=== PATIENT | female | born 1995 | race Two or more races ===

== ENCOUNTER 2017-09-04 07:34 | Emergency (ER) | payer OTHER ==
[2017-09-04 07:55] VITALS: BP 119/71; PULSE 68; TEMP 98.6; BMI 32.4
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
[2017-09-04] MEDS ORDERED: diazePAM 5 MG TABLET PO ONE (10:02)
[2017-09-04] MEDS ORDERED: KETOROLAC TROMETHAMINE 60 MG/2 ML VIAL IM ONE (10:02)
[2017-09-04] MEDS ORDERED: KETOROLAC TROMETHAMINE 60 MG/2 ML VIAL ONE (10:07)
[2017-09-04] MEDS ORDERED: diazePAM 2 MG TABLET ONE (10:07)
== END 2017-09-04 10:33 | disposition home or self-care (01) ==
LOC: JER 07:34 → JERFT 07:34
PROC: 3E0233Z Introduction of Anti-inflammatory into Muscle, Percutaneous Approach (ICD-10-PCS; principal; 2017-09-04)
DX: S13.4XXA Sprain of ligaments of cervical spine, initial encounter (principal); G44.319 Acute post-traumatic headache, not intractable; V49.59XA Passenger injured in collision with other motor vehicles in traffic accident, initial encounter; Y92.488 Other paved roadways as the place of occurrence of the external cause; Y93.89 Activity, other specified; Y99.8 Other external cause status
CPT/HCPCS: 70450-TC; 72125-TC; 84703; 99281-25

== ENCOUNTER 2018-11-24 06:44 | Emergency (ER) | payer OTHER ==
[2018-11-24 07:03] VITALS: BP 123/89; PULSE 80; TEMP 98.7; BMI 33.3
[2018-11-24] MEDS ORDERED: KETOROLAC TROMETHAMINE 60 MG/2 ML VIAL IM ONE ×2 (07:10→07:15)
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
[2018-11-24] MEDS ORDERED: KETOROLAC TROMETHAMINE 60 MG/2 ML VIAL ONE (07:51)
== END 2018-11-24 08:16 | disposition home or self-care (01) ==
LOC: JER 06:44
PROC: 3E0233Z Introduction of Anti-inflammatory into Muscle, Percutaneous Approach (ICD-10-PCS; principal; 2018-11-24)
DX: M54.2 Cervicalgia (principal); M54.89 Other dorsalgia; V49.49XA Driver injured in collision with other motor vehicles in traffic accident, initial encounter; Y92.414 Local residential or business street as the place of occurrence of the external cause; Y93.89 Activity, other specified; Y99.8 Other external cause status; Z86.32 Personal history of gestational diabetes
CPT/HCPCS: 84703; 99281-25

== ENCOUNTER 2019-08-02 16:54 | Emergency (ER) | payer OTHER ==
[2019-08-02 17:47] VITALS: BMI 34.0
[2019-08-02] MEDS ORDERED: ACETAMINOPHEN 325 MG TABLET (FP) PO ONE (18:06)
[2019-08-02] MEDS ORDERED: ACETAMINOPHEN 325 MG TABLET (FP) ONE (18:11)
--- NOTE | 2019-08-02 18:11 | PDOC ---
History of Present Illness - General History Source: Patient Exam Limitations: No Limitations <SusanKatie - Last Filed: 08/02/19 20:04> <Stephanie Gramajo - Last Filed: 08/03/19 16:15> - General Chief Complaint: Vaginal Bleeding Stated Complaint: /CRAMPS/BLEEDING Time Seen by Provider: 08/02/19 18:00 Past History - Past Medical History Asthma: No Cancer: No Cardiac Disorders: No COPD: No Diabetes: Yes (gestational diabetes- diet controlled) HTN: No Seizures: No Thyroid Disease: No - Reproductive History Cervical CA: No Dysfunctional Uterine Bleeding: No Ectopic : No Endometrial CA: No Polycystic Ovaries: No Tubal Ligation: No - Immunization History Immunization Up to Date: Yes - Psycho Social/Smoking Cessation Hx Smoking Status: Yes Smoking History: Never smoked Have you smoked in the past 12 months: Yes Number of Cigarettes Smoked Daily: 4 Information on smoking cessation initiated: No Hx Alcohol Use: No Drug/Substance Use Hx: No Substance Use Type: None Hx Substance Use Treatment: No <Katie Davis - Last Filed: 08/02/19 20:04> <Stephanie Gramajo - Last Filed: 08/03/19 16:15> - Past Medical History Allergies/Adverse Reactions: Allergies Allergy/AdvReac Type Severity Reaction Status Date / Time No Known Allergies Allergy Verified 11/24/18 06:59 Home Medications: Ambulatory Orders NK [No Known Home Medication] 08/02/19 *Physical Exam - Vital Signs Last Vital Signs Temp Pulse Resp BP Pulse Ox 98.9 F 86 18 120/77 99 08/02/19 17:40 08/02/19 17:40 08/02/19 17:40 08/02/19 17:40 08/02/19 17:40 - Physical Exam General Appearance: No: Apparent Distress Respiratory/Chest: positive: Lungs Clear, Normal Breath Sounds. negative: Respiratory Distress Cardiovascular: positive: Regular Rhythm, Regular Rate, S1, S2. negative: Murmur Female Pelvic Exam: positive: adnexal tenderness (mild along L side) Gastrointestinal/Abdominal: positive: Normal Bowel Sounds, Soft. negative: Tender, Distended, Guarding, Rebound Integumentary: positive: Normal Color Neurologic: positive: Alert <Katie Davis - Last Filed: 08/02/19 20:04> - Vital Signs Last Vital Signs Temp Pulse Resp BP Pulse Ox 98.6 F 83 17 115/72 97 08/02/19 19:25 08/02/19 19:25 08/02/19 19:25 08/02/19 19:25 08/02/19 19:25 <Stephanie Gramajo - Last Filed: 08/03/19 16:15> ED Treatment Course - LABORATORY CBC & Chemistry Diagram: 08/02/19 18:30 08/02/19 18:30 - RADIOLOGY Radiology Studies Ordered: Category Date Time Status <14WKS US [US] Stat Ultrasound 08/02/19 18:06 Ordered <Katie Davis - Last Filed: 08/02/19 20:04> - LABORATORY CBC & Chemistry Diagram: 08/02/19 18:30 08/02/19 18:30 - ADDITIONAL ORDERS Additional order review: 08/02/19 18:30 RBC 4.38 MCV 87.5 MCHC 33.9 RDW 13.1 MPV 7.7 Neutrophils % 54.3 D Lymphocytes % 38.7 D Monocytes % 3.6 L Eosinophils % 2.9 D Basophils % 0.5 - Medications Given in the ED: ED Medications Discontinued Medications Generic Name Dose Route Start Last Admin Trade Name Freq PRN Reason Stop Dose Admin Acetaminophen 975 mg 08/02/19 18:06 08/02/19 18:33 Tylenol - PO 08/02/19 18:07 975 mg ONCE ONE Administration <Stephanie Gramajo - Last Filed: 08/03/19 16:15> Medical Decision Making - Medical Decision Making 24 y/o F with no sig pmh, LNMP 06/21, presents with pelvic cramping and intermittent light vaginal bleeding from today. Mentions also had slight brownish discharge 5 days ago. Found out she was 2 days ago; has not had a checkup yet. Denies fever, sob, cp, n/v, urinary sxs. Hx of x1 R/O ectopic ; possible threatened Plan: Labs, pelvic US, tylenol 08/02/19 18:09 TVUS shows IUP at 5 weeks 6 days, FHR noted at 125 bpm Rh positive stable for dc 08/02/19 20:04 <Katie Davis - Last Filed: 08/02/19 20:04> - Medical Decision Making The patient was seen and evaluated in conjunction with midlevel provider under my direct supervision, ancillary studies were reviewed. I agree with the plan as outlined with WOODROW Davis.. HPI, workup/dispo as outlined. VS reviewed, wnl. IUP at 5w 6d seen, FHR noted, no rhogam labs and lytes unremarkable anticipate discharge, pcp followup, return precautions 08/03/19 16:15 <Stephanie Gramajo - Last Filed: 08/03/19 16:15> Discharge - Discharge Information Problems reviewed: Yes - Admission No - Additional Discharge Information Prescription Drug Monitoring Program (I-STOP) results: I-STOP not reviewed <Katie Davis - Last Filed: 08/02/19 20:04> <Stephanie Gramajo - Last Filed: 08/03/19 16:15> - Discharge Information Clinical Impression/Diagnosis: Threatened Condition: Stable Disposition: HOME - Patient Discharge Instructions Patient Printed Discharge Instructions: DI for Threatened Additional Instructions: Thank you for choosing [facility]. It was a pleasure taking care of you. Recommend pelvic rest (including no intercourse) Follow-up with your SCIENTIFIC DIVER Return to the Emergency Department if your symptoms worsen or persist or have other concerning symptoms.
[2019-08-02 18:46] LABS: BASO % 0.5 % (0-2.0); EOS % 2.9 % (0-4.5); HEMATOCRIT 38.4 % (32.4-45.2); LYMPH % 38.7 % (8-40); MCH 29.7 pg (25.7-33.7); MCHC 33.9 g/dl (32.0-36.0); MEAN CELL VOLUME 87.5 fl (80-96); MEAN PLT VOLUME 7.7 fl (7.5-11.1); MONO % 3.6 % (3.8-10.2); NEUT % 54.3 % (42.8-82.8); PLATELET COUNT 282 K/MM3 (134-434); RBC 4.38 M/mm3 (3.60-5.2); RDW 13.1 % (11.6-15.6); WHITE BLOOD COUNT 6.4 K/mm3 (4.0-10.0)
[2019-08-02 18:47] LABS: PH,URINE 6.5 (5.0-8.0); URINE APPEARANCE CLEAR; URINE BILIRUBIN NEGATIVE (NEGATIVE); URINE COLOR YELLOW; URINE GLUCOSE (UA) NEGATIVE (NEGATIVE); URINE KETONE NEGATIVE (NEGATIVE); URINE LEUK ESTERASE NEGATIVE (NEGATIVE); URINE NITRITE NEGATIVE (NEGATIVE); URINE PROTEIN NEGATIVE (NEGATIVE); URINE UROBILINOGEN 0.2 mg/dL (0.2-1.0)
[2019-08-02 19:20] LABS: ALBUMIN 3.6 g/dl (3.4-5.0); BILIRUBIN,TOTAL 0.2 mg/dL (0.2-1); CALCIUM 8.4 mg/dL (8.5-10.1); CREATININE 0.8 mg/dL (0.55-1.3); POTASSIUM 3.9 mmol/L (3.5-5.1); TOT PROT 6.7 g/dl (6.4-8.2)
[2019-08-02 19:21] LABS: BLOOD UREA NITROGEN 14.8 mg/dL (7-18)
[2019-08-02 20:10] VITALS: BP 115/72; PULSE 83; TEMP 98.6
== END 2019-08-02 20:13 | disposition home or self-care (01) ==
LOC: JER 16:54
DX: O26.891 Other specified pregnancy related conditions, first trimester (principal); O20.0 Threatened abortion; O24.410 Gestational diabetes mellitus in pregnancy, diet controlled; Z3A.01 Less than 8 weeks gestation of pregnancy
CPT/HCPCS: 36415; 76801-TC; 80053; 81003; 84702; 85025; 86850; 86900; 86901; 87086; 99284-25

== ENCOUNTER 2019-08-11 16:30 | Emergency (ER) | payer OTHER ==
--- NOTE | 2019-08-11 17:01 | PDOC ---
Rapid Medical Evaluation Medical Evaluation: Allergies Allergy/AdvReac Type Severity Reaction Status Date / Time No Known Allergies Allergy Verified 11/24/18 06:59 08/11/19 16:56 I have performed a brief in-person evaluation of this patient. The patient presents with a chief complaint of: 5 weeks, 6 days IUP w/ FHR on US w/ beta > 2800, here w/ vaginal bleed and abd pain since yesterday. No dysuria, n/v/f/c. Pertinent physical exam findings:stable I have ordered the following:ua, beta, US The patient will proceed to the ED for further evaluation Discharge Disposition - Diagnosis Threatened - Referrals - Patient Instructions - Post Discharge Activity
[2019-08-11 17:08] VITALS: PULSE 78; BMI 34.0
[2019-08-11 17:46] LABS: PH,URINE 6.5 (5.0-8.0); URINE APPEARANCE CLEAR; URINE BILIRUBIN NEGATIVE (NEGATIVE); URINE COLOR YELLOW; URINE GLUCOSE (UA) NEGATIVE (NEGATIVE); URINE KETONE NEGATIVE (NEGATIVE); URINE LEUK ESTERASE NEGATIVE (NEGATIVE); URINE NITRITE NEGATIVE (NEGATIVE); URINE PROTEIN NEGATIVE (NEGATIVE); URINE UROBILINOGEN 0.2 mg/dL (0.2-1.0)
--- NOTE | 2019-08-11 18:11 | PDOC ---
History of Present Illness - General Chief Complaint: Vaginal Bleeding Stated Complaint: 2 MTHS /BLEEDING/EVALUATION Time Seen by Provider: 08/11/19 16:59 History Source: Patient Exam Limitations: No Limitations - History of Present Illness Initial Comments: 08/11/19 18:08 Patient is a 24-year-old female who presents to the ED with vaginal bleeding and since yesterday. She states yesterday her bleeding was bright red and today it is a dark color. She does admit to some suprapubic pain. She denies any known injury. She denies any fevers or chills. She has not seen MACHINE LOAD CLERK yet for this . She has a history of high cholesterol but denies other medical history. She did have gestational diabetes with her first . Past History - Past Medical History Allergies/Adverse Reactions: Allergies Allergy/AdvReac Type Severity Reaction Status Date / Time No Known Allergies Allergy Verified 08/11/19 16:59 Home Medications: Ambulatory Orders No122/Iron/Folic Acid [ Multi Tablet] 1 each PO DAILY 08/11/19 Asthma: No Cancer: No Cardiac Disorders: No COPD: No Diabetes: Yes (gestational diabetes- diet controlled) HTN: No Seizures: No Thyroid Disease: No - Reproductive History (#): 2 Para: 1 Cervical CA: No Dysfunctional Uterine Bleeding: No Ectopic : No Endometrial CA: No Polycystic Ovaries: No Tubal Ligation: No Spontaneous : 0 - Immunization History Immunization Up to Date: Yes - Psycho Social/Smoking Cessation Hx Smoking Status: Yes Smoking History: Never smoked Have you smoked in the past 12 months: Yes Number of Cigarettes Smoked Daily: 4 Hx Alcohol Use: No Drug/Substance Use Hx: No Substance Use Type: None Hx Substance Use Treatment: No Review of Systems - Review of Systems Comments:: 08/11/19 18:09 - Review of Systems Able to Perform ROS?: Yes Constitutional: No: Fever, Chills, Loss of Appetite, Night Sweats, Weakness HEENTM: No: Eye Pain, Vision changes, Ear Pain, Throat Pain, Throat Swelling, Mouth Pain, Difficulty Swallowing Respiratory: No: Cough, Shortness of Breath, Wheezing, Sputum Production Cardiac (ROS): No: Chest Pain, Chest Tightness, Palpitations, Irregular Heart Beat, Edema ABD/GI: No: Nausea, Vomiting, Diarrhea; positive suprapubic abdominal pain and vaginal bleeding in : No Dysuria, No Hematuria, No Frequency, No Urgency, No Vaginal Discharge Musculoskeletal: No: Muscle Pain, Back Pain, Joint Pain, Muscle Weakness, Neck Pain Integumentary: No: Lesions, Rash Neurological: No: Headache, Numbness, Tingling, Weakness, Speech Difficulties *Physical Exam - Vital Signs Last Vital Signs Temp Pulse Resp BP Pulse Ox 97.6 F 78 18 112/70 98 08/11/19 16:59 08/11/19 16:59 08/11/19 16:59 08/11/19 16:59 08/11/19 16:59 - Physical Exam 08/11/19 18:10 - Physical Exam General Appearance: Nourished, Appropriately Dressed, No Distress HEENT: EOMI, Normal Voice, moist mucosa Neck: Supple, No Lymphadenopathy (R), No Lymphadenopathy (L), No Rigidity, No Decreased range of motion Respiratory/Chest: Lungs Clear, Normal Breath Sounds. No Respiratory Distress, No Accessory Muscle Use Cardiovascular: Regular Rhythm, Regular Rate, S1, S2 Gastrointestinal/Abdominal: Normal Bowel Sounds, Soft. No Guarding, No Rebound, No Rigidity; positive suprapubic tenderness to palpation. No CVA tenderness bilaterally. CUSTOMER MARKETING ASSISTANT: Scant dark blood in the vaginal vault. Bimanual exam shows a closed cervical loss. No suprapubic masses or adnexal masses appreciated. Mild suprapubic tenderness on bimanual exam. Musculoskeletal: Normal Inspection. No Decreased Range of Motion Extremity: Normal Capillary Refill, Normal Inspection Integumentary: Normal Color, Dry. No Rash Neurologic: home care rn II-XII NML intact, Fully Oriented, Alert, Normal Mood/Affect, Normal Response 08/11/19 18:53 ED Treatment Course - ADDITIONAL ORDERS Additional order review: Laboratory Results 08/11/19 17:15 Urine Color Yellow Urine Appearance Clear Urine pH 6.[address] 1.009 L Urine Protein Negative Urine Glucose (UA) Negative Urine Ketones Negative Urine Blood Negative Urine Nitrite Negative Urine Bilirubin Negative Urine Urobilinogen 0.2 Ur Leukocyte Esterase Negative Medical Decision Making - Medical Decision Making 08/11/19 18:10 Assessment: Patient is a 24-year-old female with vaginal bleeding and . She is roughly 7 weeks gestation. Her LMP was 06/22/2019. Plan: -Labs ordered -Transvaginal ultrasound ordered -We will reassess 08/11/19 18:54 Patient endorsed to MARQUITA Kirk for further evaluation and treatment. The patient is pending her ultrasound. The patient was stable at time of endorsement. 08/11/19 18:55 The patient is Rh+ and does not require RhoGam as appreciated from a previous visit on 07/29/2019. Discharge - Discharge Information Problems reviewed: Yes Clinical Impression/Diagnosis: Vaginal bleeding in - Follow up/Referral - Patient Discharge Instructions - Post Discharge Activity
--- NOTE | 2019-08-11 19:38 | PDOC ---
*Physical Exam - Vital Signs Last Vital Signs Temp Pulse Resp BP Pulse Ox 97.6 F 78 18 112/70 98 08/11/19 16:59 08/11/19 16:59 08/11/19 16:59 08/11/19 16:59 08/11/19 16:59 ED Treatment Course - ADDITIONAL ORDERS Additional order review: Laboratory Results 08/11/19 08/11/19 17:15 17:15 Beta HCG, Quant 53715.2 Urine Color Yellow Urine Appearance Clear Urine pH 6.5 Ur Specific [place] 1.009 L Urine Protein Negative Urine Glucose (UA) Negative Urine Ketones Negative Urine Blood Negative Urine Nitrite Negative Urine Bilirubin Negative Urine Urobilinogen 0.2 Ur Leukocyte Esterase Negative Medical Decision Making - Medical Decision Making 08/11/19 19:36 TVUS: small subchorionic hemorrhage. + IUP 6 weeks. Discharge - Discharge Information Problems reviewed: Yes Clinical Impression/Diagnosis: Vaginal bleeding in Disposition: HOME - Follow up/Referral - Patient Discharge Instructions Patient Printed Discharge Instructions: DI for Vaginal Bleeding Additional Instructions: Return to the ER if you are soaking 2 pads per hour, severe abdominal pain, or worsening symptoms. It is important that you follow-up with your STENO POOL SUPERVISOR as soon as possible - Post Discharge Activity Work/Back to School Note: Back to Work
[2019-08-11 19:44] VITALS: BP 126/77; TEMP 98.2
== END 2019-08-11 19:40 | disposition home or self-care (01) ==
LOC: JER 16:30
DX: O26.891 Other specified pregnancy related conditions, first trimester (principal); O20.8 Other hemorrhage in early pregnancy; O20.0 Threatened abortion; O24.410 Gestational diabetes mellitus in pregnancy, diet controlled; Z3A.01 Less than 8 weeks gestation of pregnancy
CPT/HCPCS: 36415; 76817-TC; 81003; 84702; 99284-25

== ENCOUNTER 2021-11-04 10:27 | Emergency (ER) | payer OTHER ==
[2021-11-04 11:02] VITALS: BP 112/79; PULSE 74; TEMP 98.4; BMI 34.3
[2021-11-04] MEDS ORDERED: LIDOCAINE 5% TOPICAL PATCH TP ONE (12:27)
[2021-11-04] MEDS ORDERED: KETOROLAC TROMETHAMINE 30 MG/1 ML VIAL IM ONE (12:28)
[2021-11-04] MEDS ORDERED: LIDOCAINE 5% TOPICAL PATCH ONE (12:29)
[2021-11-04] MEDS ORDERED: KETOROLAC TROMETHAMINE 30 MG/1 ML VIAL ONE (12:29)
[2021-11-04] MEDS ORDERED: LIDOCAINE PATCH REMOVAL MC ONE (22:00)
== END 2021-11-04 14:10 | disposition home or self-care (01) ==
LOC: JER 10:27 → JERFT 10:27
PROC: 3E0233Z Introduction of Anti-inflammatory into Muscle, Percutaneous Approach (ICD-10-PCS; principal; 2021-11-04)
DX: M54.42 Lumbago with sciatica, left side (principal); M54.41 Lumbago with sciatica, right side; V49.40XA Driver injured in collision with unspecified motor vehicles in traffic accident, initial encounter
CPT/HCPCS: 72040-TC; 72070-TC-FY; 72100-TC-FY; 84703; 99284-25